=== PATIENT | male | born 1970 | race Caucasian/White ===

== ENCOUNTER 2019-03-24 06:18 | Day surgery (SDC) | payer OTHER | END 2019-03-24 11:30 | disposition home or self-care (01) | LOC: AMB-ENDOS 06:18 | DX: K57.30 Diverticulosis of large intestine without perforation or abscess without bleeding (principal) ==

== ENCOUNTER 2020-06-28 06:06 | Day surgery (SDC) | payer OTHER | END 2020-06-28 12:30 | disposition home or self-care (01) | LOC: AMB-ENDOS 06:06 | PROVIDERS: ATTEND Surgery | DX: K62.89 Other specified diseases of anus and rectum (principal); Z20.822 Contact with and (suspected) exposure to COVID-19 ==

== ENCOUNTER 2021-04-03 05:57 | Day surgery (SDC) | payer OTHER ==
[~2021-04-03 05:57] MED LIST: CATAPRES-TTS 31 EACH TD; COZAAR50 MG PO; GLIMEPIRIDE2 M1 PO; LEVO-T25 MCG PO; METFORMIN HCL1000 M2 PO; NATPARA
[2021-04-03] MEDS ORDERED: ULTRACET PO (08:40)
== END 2021-04-03 10:15 | disposition home or self-care (01) ==
LOC: CIR.AMB 05:57
PROVIDERS: ATTEND Surgery
DX: C20 Malignant neoplasm of rectum (principal); Z20.822 Contact with and (suspected) exposure to COVID-19

== ENCOUNTER 2021-08-18 14:36 | Outpatient (CLI) | payer OTHER ==
[~2021-08-18 14:36] MED LIST changes: +ULTRACET PO
== END 2021-08-18 14:42 | disposition home or self-care (01) ==
LOC: LAB 14:36
PROVIDERS: ATTEND Surgery
DX: C20 Malignant neoplasm of rectum (principal); R19.4 Change in bowel habit; R59.0 Localized enlarged lymph nodes; Z03.818 Encounter for observation for suspected exposure to other biological agents ruled out